=== PATIENT | female | born 1975 | race Caucasian/White ===

== ENCOUNTER 2022-09-21 07:23 | Day surgery (SDC) | payer OTHER ==
[~2022-09-21] VITALS: Ht 180.3 cm; Wt 113.6 kg
[~2022-09-21 07:23] MED LIST: ACET-784 PO; PANT-31 PO; SODIUM CHLORIDE 0.9% 1,000 ML ONE
[2022-09-21] MEDS ORDERED: LIDOCAINE/PF 2% 5 ML VIAL CAUDAL ONE (07:24)
[2022-09-21] MEDS ORDERED: PROPOFOL 1% 20 ML VIAL IVP ONE (07:24)
[2022-09-21] MEDS ORDERED: SODIUM CHLORIDE 0.9% 1,000 ML IV ONE (10:30)
[2022-09-21] MEDS ORDERED: OXYGEN THERAPY IH SCH (20:00)
== END 2022-09-21 11:50 | disposition home or self-care (01) ==
LOC: SURGERY 07:23
PROVIDERS: ATTEND Internal Medicine Gastroenterology
DX: D50.9 Iron deficiency anemia, unspecified (principal); K64.9 Unspecified hemorrhoids; K29.70 Gastritis, unspecified, without bleeding; F43.10 Post-traumatic stress disorder, unspecified; Z98.890 Other specified postprocedural states; Z90.49 Acquired absence of other specified parts of digestive tract; Z79.899 Other long term (current) drug therapy; D64.9 Anemia, unspecified; Z88.6 Allergy status to analgesic agent; Z88.8 Allergy status to other drugs, medicaments and biological substances
CPT/HCPCS: 45378; 43239; 84703; C1769; J2704; J3490; J7030; 88305; 88312; 88313